=== PATIENT | female | born 1990 | race Caucasian/White ===

== ENCOUNTER 2022-04-12 13:17 | Outpatient (CLI) | payer BC | END 2022-04-12 13:18 | disposition home or self-care (01) | LOC: BICMAMMO 13:17 | PROVIDERS: ATTEND Nurse Practitioner Family | DX: Z12.31 Encounter for screening mammogram for malignant neoplasm of breast (principal); N63.10 Unspecified lump in the right breast, unspecified quadrant; N64.4 Mastodynia; N64.89 Other specified disorders of breast; Z90.13 Acquired absence of bilateral breasts and nipples | CPT/HCPCS: 77066; G0279 ==